=== PATIENT | female | born 1995 | race Caucasian/White ===

== ENCOUNTER 2016-10-04 01:57 | Emergency (ER) | payer BC ==
[~2016-10-04] VITALS: Ht 160 cm; Wt 51.7 kg
[~2016-10-04 01:57] MED LIST: TRAM50 PO; Z.0.BCPILL PO
[2016-10-04 02:02] VITALS: BP 135/88; PULSE 71; RESP 18; TEMP 98.6; O2SAT 98
[2016-10-04] MEDS ORDERED: IBUPROFEN 200 MG TAB PO ONE (02:30)
[2016-10-04] MEDS ORDERED: TETANUS/DIPHTHERIA TOXOID ADULT 0.5 ML VIAL IM ONE (02:30)
[2016-10-04] MEDS ORDERED: BIRTH CONTROL PILLS (02:46)
[2016-10-04] MEDS ORDERED: CHIL100S PO (02:46)
[2016-10-04] MEDS ORDERED: SILVER SULFADIAZINE 1% CR 50 GM JAR TOPICAL ONE (03:00)
[2016-10-04] MEDS ORDERED: ACETAMINOPHEN/HYDROcodone 325 MG/5 MG TAB PO ONE (03:30)
[2016-10-04] MEDS ORDERED: ONDANSETRON ODT 4 MG TAB PO ONE (03:30)
--- NOTE | 2016-10-04 03:43 | PD ---
HPI Chief Complaint: Burn Time Seen by Provider: 02:53 Travel History International Travel<30 days: No Contact w/Intl Traveler<30days: No Traveled to known affect area: No History of Present Illness HPI 20 year-old female presents to the emergency department by private vehicle for hours after burning the distal dorsal portion of the second third and fourth and fifth digits of the left hand. Patient states that she was taking hot water from the microwave and the cut moves causing the water to splash onto the dorsum of her left fingers and the mid to distal aspect of each digit sparing the thumb. Patient stated that she has noted blistering to develop over the dorsum of the digits affecting the distal joint of the left index finger anterolisthesis or extends to the ring finger. Patient states due to development of blistering decided to come to the emergency department for evaluation. Patient does not know her tetanus status. Patient did take leftover children's ibuprofen at home 300 mg prior to arrival to the emergency department. Patient denies other injury. PFSH Past Medical History Narrative Medical Asthma, kidney stones, bilateral shoulder dislocation, lithotripsy, no tobacco use, nursing notes reviewed Asthma: Yes ( CHILD) Diminished Hearing: No Kidney Stones: Yes Musculoskeletal: Yes (BILATERAL SHOULDER DISLOCATION) Immunizations Current: Yes ?: Not LMP: 10/04/16 : 0 Past Surgical History Other Surgery: Yes (KIDNEY STONES LITHOTRIPSY) Social History Alcohol Use: No Tobacco Use: No Substance Use: No Allergies-Medications (Allergen,Severity, Reaction): Coded Allergies: Amoxicillin (Verified Allergy, Severe, RASH, 10/04/16) Penicillin (Verified Allergy, Intermediate, HIVES, 10/04/16) Reported Meds & Prescriptions Reported Meds & Active Scripts Active Lortab (Hydrocodone-Acetaminophen) 5-325 Mg Tab 1 Tab PO Q6H PRN Zofran Odt (Ondansetron Odt) 4 Mg Tab 4 Mg SL Q6HR PRN Reported Childrens Motrin Liq (Ibuprofen) 100 Mg/5 Ml Susp 300 Mg PO Q8H PRN [ Control Pills] Review of Systems Except as stated in HPI: all other systems reviewed are Neg Physical Exam Narrative GENERAL: Well-developed well-nourished female in no acute distress no respiratory distress SKIN: Warm and dry. Attention left hand index finger partial thickness burn with intact blister from the mid digit to the nail inclusive of the dorsal DIP non-circumferential, middle finger left hand partial thickness burn with intact blister just distal to the PIP and just proximal to the DIP sparing each joint dorsal aspect non-circumferential, ring finger partial thickness burn with intact blister from the mid digit to the nail with inclusive of the dorsal DIP joint non-circumferential, fifth finger partial thickness burn with interrupted blister mid digit to the nail inclusive of the DIP dorsal aspect non- circumferential. Patient has intact flexion extension except for decreased range of motion at the index DIP secondary to intact blister of the partial thickness burn capillary refill is brisk and less than 2 seconds per digit and sensory exam intact. HEAD: Normocephalic. EYES: No scleral icterus. No injection or drainage. NECK: Supple, trachea midline. No JVD or lymphadenopathy. CARDIOVASCULAR: Regular rate and rhythm without murmurs, gallops, or rubs. RESPIRATORY: Breath sounds equal bilaterally. No accessory muscle use. GASTROINTESTINAL: Abdomen soft, non-tender, nondistended. MUSCULOSKELETAL: No cyanosis, or edema. BACK: Nontender without obvious deformity. No CVA tenderness. Data Data Last Documented VS Vital Signs Date Time Temp Pulse Resp B/P Pulse Ox O2 Delivery O2 Flow Rate FiO2 10/04/16 05:31 80 18 134/73 100 Room Air 10/04/16 02:02 98.6 Orders Tetanus/Diphtheria Tox Adult (Tetanus/Di (10/04/16 02:30) Wound Care (10/04/16 02:20) Wound Care (10/04/16 02:20) Ibuprofen (Advil) (10/04/16 02:30) Silver Sulfadia 1% Crm (50 Gm) (Silvaden (10/04/16 03:00) Ondansetron Odt (Zofran Odt) (10/04/16 03:30) Acetamin-Hydrocod 325-5 Mg ([place] 5-325 (10/04/16 03:30) MDM Medical Decision Making Medical Screen Exam Complete: Yes Emergency Medical Condition: Yes Medical Record Reviewed: Yes Differential Diagnosis First-degree burn, partial thickness burn Narrative Course Tetanus status updated; Silvadene dressings applied; patient given additional ibuprofen for weight-based dosing Patient complaining of ongoing burning type stinging pain at the dorsum of the second and fourth digits therefore oral hydrocodone administered along with Zofran Patient stable for outpatient management Diagnosis Primary Impression: Partial thickness burn of multiple fingers of left hand excluding thumb Qualified Code: T23.232A - Partial thickness burn of multiple fingers of left hand excluding thumb, initial encounter Referrals: Plastic Surgeon 2 days Primary Care Physician 2 days Patient Instructions: Narcotic given in the ED, General Instructions Med/Other Pt SpecificInfo: Prescription(s) given Scripts Hydrocodone-Acetaminophen (Lortab)5-325 Mg Tab1 Tab PO Q6H PRN (PAIN) #15 TAB Ref 0 Prov:Dayanna Treviño MD 10/04/16 Ondansetron Odt (Zofran Odt)4 Mg Tab4 Mg SL Q6HR PRN (Nausea/Vomiting) #10 TAB Ref 0 Prov:Dayanna Treviño MD 10/04/16 Disposition: 01 DISCHARGE HOME Condition: Stable Dayanna Treviño MD Oct 04, 2016 03:43
[2016-10-04] MEDS ORDERED: HYDR-3533 PO (03:47)
[2016-10-04] MEDS ORDERED: ZOFR4TAB3 SL (03:47)
[2016-10-04 04:10] VITALS: BP 115/77; PULSE 71; RESP 18; O2SAT 97
[2016-10-04 05:31] VITALS: BP 134/73; PULSE 80; RESP 18; O2SAT 100
== END 2016-10-04 06:26 | disposition home or self-care (01) ==
LOC: PHED 01:57
DX: T23.232A Burn of second degree of multiple left fingers (nail), not including thumb, initial encounter (principal); Z23 Encounter for immunization; X12.XXXA Contact with other hot fluids, initial encounter; Y93.G3 Activity, cooking and baking; Y92.000 Kitchen of unspecified non-institutional (private) residence as the place of occurrence of the external cause; Y99.8 Other external cause status
CPT/HCPCS: 16000; 16020; 90471; 90714

== ENCOUNTER → 2017-03-12 | Day surgery (SDC) | payer BC ==
[~2017-03-12] MED LIST changes: +BIRTH CONTROL PILLS; +BUPIVACAINE/EPINEPHRINE 0.25% PF 30 ML VIAL INFIL ONE; +CHIL100S PO; +HYDR-3533 PO; +LACTATED RINGER'S 1000 ML INJ 1,000 ML ONE; +MIDAZOLAM HCL 2 MG/2 ML VIAL ONE; +NS 100 ML (PAB BAG) 100 ML IV ONE; +ONDANSETRON HCL 4 MG/2 ML VIAL IV PUSH ONE; +PROPOFOL 500 MG/50 ML BTL IV ONE; -TRAM50 PO; +VANCOMYCIN 500 MG VIAL ONE; -Z.0.BCPILL PO; +ZOFR4TAB3 SL
--- NOTE | 2017-03-12 15:28 | TN ---
cc: JANICE EUCEDA MD DATE OF SURGERY: 03/12/2017 SURGEON: Janice Euceda MD. PREOPERATIVE DIAGNOSIS: Left shoulder anterior instability, recurrent anterior dislocations. POSTOPERATIVE DIAGNOSIS: Left shoulder anterior instability, recurrent anterior dislocations. PROCEDURE: Left shoulder arthroscopy with anterior reconstruction using Arthrex anchors. PROCEDURE IN DETAIL: Informed consent was obtained, the patient was taken to the operating room and placed supine on the operating table, she is administered general anesthesia by Dr. Luna Anesthesia department. She did have a shoulder block prior to the initiation of her procedure. She was then placed in the lateral decubitus position on the operating room table. A sterile U-drape was applied over her shoulder, beanbag was utilized for positioning. At that time the shoulder was prepped Betadine soap, followed by Betadine paint. The patient has been given vancomycin 500 mg prior to the initiation of the operative procedure. She did have a rash which appeared to be associated with the vancomycin she was using some Benadryl this did not progress and appeared to recede. At that time the shoulder was prepped with Betadine soap, followed by Betadine paint draping commenced in the standard fashion putting towels about the shoulder, split sheets, a stockinette for the Accufix shoulder rice was placed over the patients arm, this was wrapped with the coban. A sterile rope was applied and this was passed off and placed over the Accufix shoulder rice and ten pounds of traction were applied. A time out was held and confirmed. At that time an 18 gauge spinal needle was placed, approximately 1 cm posterior and inferior to the posterior angle of the acromion and the shoulder joint was entered and infiltrated with 10 cc of 0.25% Marcaine with epinephrine. A small incision was made with an 11 blade and at that time an arthroscopic cannula was introduced into the shoulder joint. The biceps tendon was intact, the rotator cuff was intact, subscapularis was intact. Examination of the anterior labrum demonstrated that there was not anterior detached this with a small Bankart lesion. There were no significant arthritic changes noted on the humeral head, the inferior labrum appeared intact. The posterior labrum appeared intact. At that time an anterior portal was established. The Bankart type lesion was probed, utilizing a meniscal shaver, debridement of the rimmed Glenoid was preformed, at that time the Arthrex system for stabilization was utilized. Three <<2:52>> suture anchors were placed along the inferior aspect of the shoulder. The guide system was used initially to capture tissue, the middle portion included the middle glenohumeral ligament proximal and distal portions were also obtained. The suture with loop was then passed and the loop was cinched down. The labrum, the anchors were 3.5 Arthrex anchors were then placed one at a time and the reconstruction appeared satisfactory. At that time all traction was removed and the humeral head appeared well situated within this relationship of the glenoid. At that time the scope was placed in the subacromial bursa, no specific pathology was seen. It was noted again there was no undersurface rotator cuff pathology. At that time the shoulder was irrigated and cannulas were removed. Each portal was closed with 3-0 plain sutures, followed by two 4-0 nylon sutures. Closed with simple stitching. Band-aides, 4 x 4's, abd and tape were applied to the patients shoulder, she was placed in a sling. She tolerated the procedure well and was taken to the Recovery Room in stable condition. At the conclusion of the procedure the sponge count, instruments and needle counts were correct. Estimated blood loss was less then 10 cc. MD ADRIANAN Parra/arun /3:06 PM /3:26 PM
== END | disposition home or self-care (01) ==
LOC: ESDC 11:24
PROVIDERS: ATTEND Orthopaedic Surgery
DX: M25.312 Other instability, left shoulder (principal); M24.412 Recurrent dislocation, left shoulder
CPT/HCPCS: 01630; 01991; 29806; 64417; C1713; J2250; J2405; J3370; J7120

== ENCOUNTER → 2017-06-25 | Day surgery (SDC) | payer BC ==
[~2017-06-25] MED LIST changes: +BUPIVACAINE HCL PF 0.75% 30 ML VIAL ONE; -BUPIVACAINE/EPINEPHRINE 0.25% PF 30 ML VIAL INFIL ONE; +BUPIVACAINE/EPINEPHRINE 0.25% PF 30 ML VIAL ONE; +CLINDAMYCIN PHOS 600 MG/4 ML VIAL ONE; +LIDOCAINE 1.5%/EPINEPHrine 1:200,000 PF SOLN 30 ML AMP ONE; -NS 100 ML (PAB BAG) 100 ML IV ONE; +PROPOFOL 200 MG/20 ML AMP IV ONE; -PROPOFOL 500 MG/50 ML BTL IV ONE; +ceFAZolin INJ 1,000 MG VIAL ONE
--- NOTE | 2017-06-25 16:50 | TN ---
cc: JANICE EUCEDA MD DATE OF SURGERY: 06/25/2017 ATTENDING SURGEON: Janice Euceda MD. PREOPERATIVE DIAGNOSIS Right shoulder recurrent instability generalized ligamentous laxity. POSTOPERATIVE DIAGNOSIS Right shoulder recurrent instability generalized ligamentous laxity. PROCEDURE Right shoulder arthroscopic anterior reconstruction (arthroscopic Bankart procedure). PROCEDURE IN DETAIL Informed consent was obtained the patient up and placed in supine position on the operating room table, she was administered general anesthesia by Dr. Luna of the Anesthesia Department. At that time the patient was turned into the lateral decubitus position. It is noted she had been given vancomycin 500 mg prior to initiation operative procedure. Once she was secured on the beanbag, the shoulder was prepped with Betadine soap followed by Betadine paint. Draping commenced in standard fashion, a time-out was held and confirmed. A sterile arm rice was placed on the patient's left arm and hand, this was stretched with sterile rope. This was then passed over the Accufix shoulder rice and 5 pounds of traction was applied. A 18 gauge spinal needle was directed from the posterior angle of the acromion and towards the coracoid process, the shoulder joint was entered infiltrated with 10 mL of 0.25% Marcaine with epinephrine. A small incision was made posteriorly arthroscopic cannula was introduced into the shoulder joint. Inflow was applied to cannula and diagnostic arthroscopy commenced the biceps tendon appeared intact. The humeral head appeared intact. The subscapularis tendon had a normal appearance. There was a band at the mid glenohumeral ligament which of course in front of the subscapularis. The rest of the mid glenohumeral ligament appeared to be in an essentially normal position. There was some detachment of the anterior labrum from the anterior aspect of the glenoid. The patient was noted to have anterior inferior instability, utilizing the Arthrex anchor system. The loop passer was passed through the anterior labrum, in the mid glenohumeral ligament. A suture was passed and anchors were placed in approximately the 1 o'clock, 3 o'clock and 5 o'clock positions on the rim of the glenoid. The patient appeared to be satisfactorily tightened at that time. The shoulder was irrigated and suctioned and the arthroscopic arthroscope was removed and placed in the subacromial bursa. This was evaluated, the superior surface of the rotator cuff appeared normal. An undersurface rotator cuff appeared normal, biceps tendon as noted appeared normal. At that time the scope was removed. Each of the portals was closed. The anterior portal was closed with a 3-0 plain and 4-0 nylon interrupted stitches utilizing Allogard to protect stitch, the posterior incision was closed with single simple 4-0 nylon stitch. Band-Aids, 4x4s, ABD and tape were applied to the patient's shoulder. She was placed in a sling. She tolerated the procedure well and was then taken to the Recovery Room in stable condition. At the completion of procedure sponge and needle counts were correct. Estimated blood loss was less than 10 cc. MD ADRIANNA Parra/arun /3:32 PM /4:31 PM
== END | disposition home or self-care (01) ==
LOC: ESDC 11:24
PROVIDERS: ATTEND Orthopaedic Surgery
DX: M25.311 Other instability, right shoulder (principal)
CPT/HCPCS: 01630; 01991; 29806; 64417; 76942; C1713; J2250; J2405; J3370; J7120; J0690